=== PATIENT | male | born 1995 | race Caucasian/White ===

== ENCOUNTER 2019-08-24 16:14 | Outpatient (CLI) | payer OTHER, SELFPAY ==
--- NOTE | ~2019-08-24 | XR_ITS ---
EXAMINATION: XR knee LT 2V, XR tibia fibula LT 2V EXAM DATE: 08/24/2019 16:50 INDICATION: Initial encounter following injury, with pain of the left knee. TECHNIQUE: Frontal and lateral projections of the left knee. Left tibia/fibula frontal and lateral p rojections obtained and reviewed. There is no prior study for comparison. FINDINGS: Left tibial and fibular shafts unremarkable. There is no left knee joint effusion. There a re no acute fractures or dislocations identified. There is no subcutaneous gas. The soft tissue is unremarkable. There are no radiopaque foreign bodies. IMPRESSION: No acute osseous findings. Reviewed, dictated and finalized at location G. IMPRESSION: No acute osseous findings. IMPRESSION: No acute osseous findings.
== END 2019-08-24 16:15 | disposition home or self-care (01) ==
LOC: ANHIMG 16:20
PROVIDERS: PCP Family Medicine; Visit Provider Physician Assistant Medical
DX: S89.92XA Unspecified injury of left lower leg, initial encounter (principal); M79.669 Pain in unspecified lower leg
CPT/HCPCS: 73560; 73590

== ENCOUNTER 2020-06-29 08:29 | Outpatient (CLI) | payer OTHER, SELFPAY ==
--- NOTE | ~2020-06-29 | XR_ITS ---
EXAMINATION: XR foot RT 2V EXAM DATE: 06/29/2020 08:42 INDICATION: S99.921A - Unspecified injury of right foot, initial encounter. TECHNIQUE: Frontal and lateral projections of the right foot. There is no prior study for compariso n. 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 There are no acut e fractures or dislocations identified. There is no subcutaneous gas. There may be some swelling ov er the forefoot. There are no radiopaque foreign bodies. IMPRESSION: 1. Right foot 2 view exam without acute osseous findings. Reviewed, dictated and finalized at location A.
== END 2020-06-29 08:30 ==
PROVIDERS: PCP Family Medicine; Visit Provider Physician Assistant Medical
DX: S99.921A Unspecified injury of right foot, initial encounter (principal); X58.XXXA Exposure to other specified factors, initial encounter
CPT/HCPCS: 73620